=== PATIENT | male | born 2000 | race Caucasian/White ===

== ENCOUNTER 2019-04-29 19:32 | Emergency (ER) | payer MEDICAID, SELFPAY ==
[2019-04-29 19:33] VITALS: BP 121/65; PULSE 73; RESP 18; TEMP 36.7; O2SAT 94; BMI 33.8
--- NOTE | 2019-04-29 19:48 | RAD_ITS ---
HISTORY: Fall. Hyperextended pinkie. Exam is 3 views of the left fifth digit. Findings: An avulsion fracture is present on the volar surface the proximal end of the fifth middle phalanx. Soft tissue swelling is present. Bony alignment is normal. Joint spaces are preserved. RAD/Finger(s) Min 2 Views IMPRESSION: Avulsion fracture on the volar surface, proximal and of the fifth middle phalanx at the proximal interphalangeal joint at 2023 Reported and signed by: Cristi Deng MD Electronically Signed: Cristi Deng MD at 20:22 EDT Tel , Service support ,
--- NOTE | 2019-04-29 19:48 | ED.DCSUM_ITS ---
- ER Visit Summary Date of Service: 04/29/19 Chief Complaint: Left pinky finger injury History of Present Illness: The patient is a 18 M who presents with injury to his left fifth finger that occurred today. Patient was walking up some steps when he tripped and fell. Patient put his hands out to catch himself. Patient states his left fifth finger hit the edge of a step and was hyperextended. Patient states the pain is worse over the middle phalanx. Patient denies any weakness but admits to some tingling in his finger. Patient states the pain is sharp and throbbing. Patient states the pain is worse with movement and grasping things. Physical Examination: Vital signs are stable. Patient is afebrile. Patient is in no acute distress. Musculoskeletal exam reveals tenderness over the middle phalanx of the left fifth finger. There is no deformity noted. There is no ecc hymosis. Range of motion was slightly limited in complete flexion and complete extension of the PIP and DIP joints of the left fifth finger. Capillary refill is less than 2 seconds in all digits. Radial pulses are equal bilaterally. Sensation was intact to light touch in all digits. Test Results: X-rays of the left fifth finger were obtained. There is a small avulsion of the volar aspect of the base of the middle phalanx of the left fifth finger. This was interpreted by the radiologist and reviewed by myself. Emergency Department Course and Treatment: Patient was given an aluminum splint. Patient was instructed to ice and elevate the left fifth finger. Patient was instructed to follow-up with his primary care physician in 5 to 7 days. Patient understood and was agreeable with the plan. All questions were answered. Disposition: Discharge home Impression: Avulsion fracture middle phalanx left fifth finger This note was generated with [employer] dictation software. It may contain incorrect words, spelling, and punctuation that were not noted in review of the chart prio r to signing ED Disposition - Plan for ED Patient: Disposition: Home or Assisted Living Diagnosis: Closed avulsion fracture of middle phalanx of finger Instructions: FRACTURE, Finger (Closed) Referrals: Praveen Booker MD [Primary Care Provider] - 5-7 Days
== END 2019-04-29 21:25 | disposition home or self-care (01) ==
PROVIDERS: Emergency Provider Emergency Medicine; Family Provider Family Medicine; PCP Family Medicine
DX: S62.657A Nondisplaced fracture of middle phalanx of left little finger, initial encounter for closed fracture (principal); W01.198A Fall on same level from slipping, tripping and stumbling with subsequent striking against other object, initial encounter; Y93.01 Activity, walking, marching and hiking; Y92.009 Unspecified place in unspecified non-institutional (private) residence as the place of occurrence of the external cause; Y99.8 Other external cause status
CPT/HCPCS: 73140; 99283

== ENCOUNTER 2021-12-06 19:44 | Emergency (ER) | payer MEDICAID, SELFPAY ==
[2021-12-06 19:45] VITALS: BP 112/62; PULSE 93; RESP 16; TEMP 36.7; O2SAT 97; BMI 24.4
--- NOTE | 2021-12-06 19:46 | RAD_ITS ---
EXAM: XR RIGHT SHOULDER COMPLETE, 2 OR MORE VIEWS CLINICAL INDICATION: INJURY TECHNIQUE: Two or more views of the right shoulder. This report was created using [employer] report generation technology. COMPARISON: None. FINDINGS: BONES/JOINTS: Unremarkable. No acute fracture. No subluxation. Normal alignment. Preservation of the joint space. No sclerotic or destructive changes observed. SOFT TISSUES: Unremarkable. No soft tissue swelling or gas. No radiopaque foreign body. RAD/Shoulder min 2 Views IMPRESSION: Negative right shoulder x-rays. Electronically Signed: Eliezer Cisneros MD at 20:20 EDT ,
--- NOTE | 2021-12-06 19:50 | RAD_ITS ---
EXAM: XR RIGHT ANKLE COMPLETE, 3 OR MORE VIEWS CLINICAL INDICATION: INJURY TECHNIQUE: Frontal, lateral and oblique views of the right ankle. This report was created using [employer] report generation technology. COMPARISON: None. FINDINGS: BONES/JOINTS: There is a nondisplaced fracture of the distal fibula seen on the lateral view. There is soft tissue swelling over the medial and lateral malleoli. Preservation of the joint space. No sclerotic or destructive changes observed. SOFT TISSUES: See above. RAD/Ankle min 3 Views IMPRESSION: Nondisplaced fracture of the distal fibula with soft tissue swelling. Electronically Signed: Eliezer Cisneros MD at 20:19 EDT ,
[2021-12-06] MEDS: HYDROcodone Bitartrate/Apap 5/325 Tablet PO (20:43)
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
--- NOTE | 2022-01-07 13:12 | ED.RN ---
Patient was sent in by because the walking boot he was given was not holding air for support. This nurse spoke with Amy at [facility] and ok to replace the walking boot and discard of the original one in the trash.
== END 2021-12-06 20:49 | disposition home or self-care (01) ==
PROVIDERS: Emergency Provider Student in an Organized Health Care Education/Training Program; PCP Family Medicine; Visit Provider Student in an Organized Health Care Education/Training Program
DX: S82.831A Other fracture of upper and lower end of right fibula, initial encounter for closed fracture (principal); S40.011A Contusion of right shoulder, initial encounter; V86.05XA Driver of 3- or 4- wheeled all-terrain vehicle (ATV) injured in traffic accident, initial encounter
CPT/HCPCS: 73030; 73610; 99284

== ENCOUNTER 2022-03-11 09:00 | Outpatient (RCR) | payer MEDICAID, SELFPAY ==
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
--- NOTE | 2022-03-11 09:39 | HP.PTDCSUM ---
It has been my pleasure to treat JOSH WALTERS referred by Dr. Keyshawn Karimi DPM, with the diagnosis of R ANKLE FRACTURE for a total of 9 visit(s). Discharge Date: 03/11/22 Please see the following information for a summary of their discharge status. Subjective: PATIENT REPORTS HIS ANKLE FEELS PRETTY MUCH NORMAL NOW. HE STATES WORK RELATED THINGS ARE NORMAL BUT RECRATIONALLY NOT BACK TO FULL SPRINTS YET. STATES HE PLANS TO PACE HIMSELF GETTING BACK TO FULL RECREATIONAL ACTIVITY SO HE DOESN'T HURT HIMSELF AGAIN. HAS BEEN ABLE TO WALK AROUND AT A [employer] AND [employer] FOR LONG PERIODS, PLAY PAINT BALL, ETC WITHOUT PAIN. MOVING [facility] NEXT W[facility]. RLE Pain Intensity (Out of 10): 0 % Improvement: 90 Objective/Function: PATIENT WAS SEEN TODAY FOR RE-ASSESSMENT OF PROGRESS TOWARD THE SET PT GOALS AND THE NEED FOR FURTHER PHYSICAL THERAPY VS READINESS FOR DISCHARGE. PATIENT IS INDEP WITH A HEP AND ALL GOALS HAVE BEEN MET. GOOD GAIT PATTERNING. UPON EXAM TODAY: AROM OF RIGHT ANKLE: DORSIFLEX 10 DEG, PLANTARFLEXION 42 DEG, INVERSION 36 DEG AND EVERSION 8 DEG. PATIENT DENIES PAIN WITH AROM ALL PLANES. GOOD AROM OF ALL TOES. Motor deficit: R ANKLE STRENGTH 5/5 WITH MMT'ING ALL PLANES. OTHER: NO R FOOT OR ANKLE TENDERNESS WITH PALPATION. Goal 1:: DECREASE C/O RIGHT FOOT AND ANKLE PAIN Goal Progress: Goal Met Goal 2:: FULL PAINFREE R FOOT AND ANKLE ROM AND STRENGTH ALLOWING FOR RETURN TO PRIOR LEVEL OF FUNCTION Goal Progress: Goal Met Goal 3:: PATIENT WILL BE INDEP WITH A HEP FOR CONTINUED IMPROVEMENT ONCE FORMAL PHYSICAL THERAPY CONCLUDES. Goal Progress: Goal Met Plan: D/C If there are questions or concerns regarding this patient's physical therapy, please feel free to call me at [phone]. Thank you for the referral of this patient. Sincerely, Bridget Ng, PT, Cert MDT Balance/Gait/Functional tests - Balance/Special Test Scores Lower Extremity Functional Score: 75
== END 2022-03-11 19:00 | disposition home or self-care (01) ==
LOC: PT 09:00
PROVIDERS: PCP Family Medicine; Referring Provider Student in an Organized Health Care Education/Training Program; Visit Provider Student in an Organized Health Care Education/Training Program
DX: S82.434D Nondisplaced oblique fracture of shaft of right fibula, subsequent encounter for closed fracture with routine healing (principal)
CPT/HCPCS: 97110; 97162; 97164; 97530